=== PATIENT | male | born 1950 | race Two or more races ===

== ENCOUNTER 2017-09-08 15:12 | Outpatient (CLI) | payer OTHER | END 2017-09-08 15:50 | disposition home or self-care (01) | LOC: SONOGRAMA 15:12 | DX: E06.9 Thyroiditis, unspecified (principal) ==

== ENCOUNTER 2017-10-11 12:00 | Outpatient (CLI) | payer OTHER | END 2017-10-11 12:27 | disposition home or self-care (01) | LOC: RAD 12:00 | DX: G54.1 Lumbosacral plexus disorders (principal) ==

== ENCOUNTER 2017-10-14 08:34 | Outpatient (CLI) | payer OTHER | END 2017-10-14 08:37 | disposition home or self-care (01) | LOC: NUCLEAR 08:34 | DX: I87.2 Venous insufficiency (chronic) (peripheral) (principal); Z86.718 Personal history of other venous thrombosis and embolism ==

== ENCOUNTER 2018-01-03 14:05 | Outpatient (CLI) | payer OTHER | END 2018-01-03 14:12 | disposition home or self-care (01) | LOC: RAD 14:05 | DX: J44.9 Chronic obstructive pulmonary disease, unspecified (principal) ==

== ENCOUNTER 2018-08-08 14:11 | Outpatient (CLI) | payer OTHER | END 2018-08-08 14:31 | disposition home or self-care (01) | LOC: TOM 14:11 | DX: I71.2 Thoracic aortic aneurysm, without rupture (principal) | CPT/HCPCS: 71275; Q9965 ==

== ENCOUNTER → 2019-07-03 14:00 | Outpatient (CLI) | payer OTHER | END | disposition home or self-care (01) | LOC: LAB 14:00 | DX: K85.00 Idiopathic acute pancreatitis without necrosis or infection (principal); R63.4 Abnormal weight loss ==

== ENCOUNTER → 2019-07-04 | Outpatient (CLI) | payer OTHER | END | disposition home or self-care (01) | LOC: TOM 08:30 | DX: K85.00 Idiopathic acute pancreatitis without necrosis or infection (principal); R63.4 Abnormal weight loss | CPT/HCPCS: 74177; Q9965 ==